=== PATIENT | female | born 1945 | race Caucasian/White ===

== ENCOUNTER → 2016-07-10 | Outpatient (CLI) | payer MEDICARE, BC ==
[2014-01-29 09:29] VITALS: BP 127/77
[~2016-07-10] MED LIST: ACET500T33 PO; ASPI81TA2 PO; DILT180C64 PO; FLEC100T PO; GABA-586 PO; HYDR25TA9 PO; IOHEXOL 180 MG/ML 10 ML VIAL. ONE; LEVO150T5 PO; LOSA100T6 PO; LOSA50TA6 PO; METO50TA2 PO; MULT1TAB52 PO; PANT40TA5 PO; PRAV40TA2 PO; RIVA10TA PO; ROLOXIFENE PO; SOTA80TA PO; methylPREDNISolone ACETATE 40 MG/ML VIAL. ONE; methylPREDNISolone ACETATE 80 MG/ML VIAL. ONE
--- NOTE | 2016-07-11 05:48 | PAIN ---
DATE OF SERVICE: 07/10/2016 DIAGNOSES: Lumbar radiculopathy with lumbar degenerative disk disease and lumbar spondylosis. HISTORY OF PRESENT ILLNESS: The patient is a 71-year-old female who returns for followup status post lumbar epidural steroid injection x 1. The patient reports only about 1 day of decreased pain by about 80%, but then the pain returned fairly quickly in the low back and left leg and thigh. The patient reports it is now a 10 on a scale of 10 when she is up and around, better with sitting or lying down, but with standing and walking even for a few minutes, the pain returns significantly. The patient reports it is sharp, throbbing, continuous, better with sitting, worse with standing and walking. The patient reports no new motor or sensory deficits. No new bowel or bladder incontinence, but still significant pain as noted, rated a 10 on a scale of 10. PHYSICAL EXAMINATION: VITAL SIGNS: Today, the patient's blood pressure is 141/76, pulse 63, respirations 18, temperature 98.1 degrees Fahrenheit. Weight is 254 pounds. GENERAL: The patient is awake, alert, oriented, appropriate, very pleasant demeanor. HEENT: Shows normocephalic, atraumatic. Extraocular movements are intact and symmetrical. Oral cavity shows mucous membranes moist and pink. Dentition is intact. NECK: Shows anterior throat supple without palpable lymphadenopathy noted. Swallow reflex is symmetrical. Neck shows full rotation and motion of the cervical spine without difficulty. CHEST: Shows normal on inspection. Breath sounds are clear to auscultation bilaterally. HEART: Shows S1 and S2 clear. ABDOMEN: Obese, soft, nontender, nondistended. BACK: Shows spine grossly midline. Minor exaggeration of thoracic kyphosis, mild lumbar lordotic flattening on appearance. Musculature in the lumbar distribution is grossly symmetrical without evidence of atrophy or hypertrophy. No tenderness over the sacrum or the sacroiliac regions. Lumbar paraspinous muscle shows some [id number] tenderness in the middle and lower distribution of paraspinous muscles, but is fairly symmetrical without one side more painful than the other. The patient does show good rotation and motion of lumbar spine both laterally greater than 10 degrees right and left as well as extension greater than 10 degrees, forward flexion 45 degrees without difficulty. EXTREMITIES: Lower extremities showed deep tendon reflexes 1+ in the patellar tendons and tendo calcaneus tendons. Motor exam is strong with approximately 4 on a scale of 5 dorsiflexion, extension, quadriceps and hamstring flexion, but equal and symmetrical. Options were discussed with the patient, as was her old chart was reviewed as her current medication regimen and updated. Current review of systems is updated today as well. We will proceed with a second lumbar epidural steroid injection today with fluoroscopic guidance. Risks were again discussed including, but not limited to bleeding, infection, possibility of epidural hematoma, subsequent neurologic compromise, dural puncture, headaches, spinal cord and/or nerve damage, side effects of steroid medication and poor results regarding pain control. The patient understands and wished to proceed. The patient will return to clinic in approximately 2 weeks for followup, was counseled on return appointment, activity level and side effects to be aware of. DIAGNOSIS: Lumbar radiculopathy with lumbar degenerative disk disease and lumbar spondylosis. PROCEDURES: Lumbar epidural steroid injection, translaminar approach at the L3-L4 level with fluoroscopic guidance under sterile prep and drape using local anesthetic. MEDICATIONS INJECTED: 120 mg Depo-Medrol plus 10 mL of preservative-free normal saline and 2 mL of Isovue for contrast. CONDITION AT DISCHARGE: Stable. The patient tolerated the procedure well, had no complications. ESTEFANY GUZMAN MD DR: KEYONA/nts JOB#: [id number] / [id number]
== END ==
LOC: PNCL 09:11
PROVIDERS: ATTEND Anesthesiology
DX: M51.16 Intervertebral disc disorders with radiculopathy, lumbar region (principal); M47.26 Other spondylosis with radiculopathy, lumbar region; K21.9 Gastro-esophageal reflux disease without esophagitis; I10 Essential (primary) hypertension; E78.00 Pure hypercholesterolemia, unspecified; E03.9 Hypothyroidism, unspecified; M19.90 Unspecified osteoarthritis, unspecified site; E66.9 Obesity, unspecified; Z90.49 Acquired absence of other specified parts of digestive tract; Z90.710 Acquired absence of both cervix and uterus
CPT/HCPCS: 62323; J1030; J1040

== ENCOUNTER → 2016-07-30 | Outpatient (CLI) | payer MEDICARE, BC ==
[2014-01-29 09:29] VITALS: BP 127/77
--- NOTE | 2016-07-31 00:45 | PAIN ---
DATE OF SERVICE: 07/30/2016 DIAGNOSES: Lumbar radiculopathy with lumbar degenerative disk disease and lumbar spondylosis. HISTORY OF PRESENT ILLNESS: The patient is a 71-year-old female who returns for followup status post lumbar epidural steroid injections x 2. The patient reports only about 10% improvement overall. Initially, she had a few days that it was very significantly improved by 80%, but the pain after the last injection has been fairly significant in the low back and her left leg, mostly in the anterior medial thigh, anterior lower leg as well as the medial lower leg. Reports it as aching and dull, hurts, worse when she is up on her feet, walking or standing. She reports anywhere from 5-9 on a scale of 10, 9 towards the end of the day after she has been active and better with sitting down, lying down, but it has awaken her from sleep occasionally, but not every night. The patient reports no new motor or sensory deficits, no new bowel or bladder incontinence, but significant pain as noted. The patient's old MRI scan was reviewed with her as well. She has seen Neurosurgery without significant surgical lesions and is scheduled to have repeat physical therapy coming up next week. I encouraged her to ____ as well. PHYSICAL EXAMINATION: VITAL SIGNS: The patient's blood pressure is 119/69, pulse 63, respirations 18, temperature is 98.2 degrees Fahrenheit, height is 5 feet 5 inches and weight is 256 pounds. GENERAL: The patient is awake, alert, oriented, appropriate, very pleasant demeanor. HEENT: Shows normocephalic, atraumatic. The patient wears eye glasses. Oral cavity shows mucous membranes are moist and pink. Dentition is intact. NECK: Shows anterior throat supple without palpable lymphadenopathy noted. Swallow reflex is symmetrical. Neck shows full rotation and motion of the cervical spine without difficulty or tenderness. CHEST: Shows normal on inspection. Breath sounds are clear to auscultation bilaterally. HEART: Shows S1 and S2 clear. ABDOMEN: Normal on inspection, soft, nontender, nondistended, obese, but no palpable organomegaly is noted. No rebound or guarding demonstrated. BACK: Shows spine grossly in midline. Lumbar paraspinous muscle shows some moderate tenderness with palpation in the low lumbar distribution as well as the mid lumbar distribution, but only diffusely and only symmetrically. The patient reports no tenderness with palpation over the sacrum or sacroiliac regions, but show good rotation and motion of the lumbar spine, both laterally as well as extension and flexion without difficulty or pain reported. EXTREMITIES: Lower extremities show deep tendon reflexes 1+ in the patellar and tendo calcaneus tendons. Motor exam is strong with approximately 4 on a scale of 5 dorsiflexion and extension, but equal bilaterally as is quadriceps and hamstring flexion. Peripheral pulses are 2+ in the posterior tibial and dorsalis pedis pulses. No peripheral edema is noted. PLAN: Options were discussed with the patient. At this time, the patient's old chart was reviewed as her current medication regimen and updated. Current review of systems updated today as well. We will proceed with a third lumbar epidural steroid injection today as a third in the series with fluoroscopic guidance. Risks were again discussed including, but not limited to bleeding, infection, possibility of epidural hematoma and subsequent neurological compromise, dural puncture, headaches, spinal cord and/or nerve damage, side effects of steroid medication and poor results regarding pain control. The patient understands and wishes to proceed. The patient will return to the clinic in approximately 2 weeks for followup. She was counseled on return appointment, activity level and side effects to be aware of. Also, the patient will follow up with physical therapy and we discussed potential water therapy as well as ____ very beneficial for her in the future. She will continue to do her exercises and we encouraged her to complete the physical therapy as outlined as well, as she can follow up after this is completed. DIAGNOSES: Lumbar radiculopathy with lumbar degenerative disk disease and lumbar spondylosis. PROCEDURES: Lumbar epidural steroid injection at the L3-L4 level, translaminar approach using C-arm fluoroscopic guidance under sterile prep and drape and local anesthesia. Medication injected is 120 mg of Depo-Medrol plus 10 mL of preservative-free normal saline and 2 mL of Isovue for contrast. CONDITION AT DISCHARGE: Stable. The patient tolerated the procedure well, had no complications. ESTEFANY GUZMAN MD DR: KEYONA/wilfred JOB#: [id number] / [id number]
== END ==
LOC: PNCL 08:58
PROVIDERS: ATTEND Anesthesiology
DX: M51.16 Intervertebral disc disorders with radiculopathy, lumbar region (principal); M47.26 Other spondylosis with radiculopathy, lumbar region; I10 Essential (primary) hypertension; E78.00 Pure hypercholesterolemia, unspecified; E66.9 Obesity, unspecified; K21.9 Gastro-esophageal reflux disease without esophagitis; E03.9 Hypothyroidism, unspecified; M19.90 Unspecified osteoarthritis, unspecified site; Z96.653 Presence of artificial knee joint, bilateral; Z90.49 Acquired absence of other specified parts of digestive tract
CPT/HCPCS: 62323; J1030; J1040